=== PATIENT | male | born 1970 | race Caucasian/White ===

== ENCOUNTER 2024-05-03 15:27 | Emergency (ER) | payer SELFPAY ==
[~2024-05-03] VITALS: Ht 177.8 cm; Wt 73.1 kg
[~2024-05-03 15:27] MED LIST: CEPHALEXIN500 M1 PO; CIPRO 500MG TA500 MG PO; COLACE 100100 MG/CAP PO; HYDROCODONE/APAP; IBUPROFEN 200200 MG PO; MOTRIN 200200 MG/TAB PO; PERCOCET 325 MG1 TA2 PO; PERCOCET 5/321 UDTAB PO
[2024-05-03 15:38] VITALS: TEMP 98
[2024-05-03 16:02] LABS: COLLECTION METHOD CLEAN CATCH
[2024-05-03 16:08] LABS: PH 5.5 (5.0-8.5); URINE APPEARANCE CLEAR (CLEAR/HAZY); URINE BLOOD NEGATIVE (NEGATIVE); URINE COLOR YELLOW (YELLOW); URINE GLUCOSE NEGATIVE (NEGATIVE); URINE KETONE NEGATIVE (NEGATIVE); URINE NITRATE NEGATIVE (NEGATIVE); URINE PROTEIN(semi-quant) NEGATIVE (NEGATIVE); URINE UROBILINOGEN 0.2 E.U/dL (0.2-1.0)
[2024-05-03 16:15] VITALS: BP 171/118; PULSE 100
[2024-05-03 16:16] LABS: BASO # 0.1 K/mm3 (0.0-0.2); BASO % 0.6 % (0.0-2.0); EOS # 0.2 K/mm3 (0.0-0.7); EOS % 1.9 % (0.0-4.0); GRAN # 4.6 K/mm3 (1.4-6.5); GRAN % 59.3 % (42.2-75.2); HEMATOCRIT 44.3 % (42.0-52.0); HEMOGLOBIN 15.6 g/dl (13.5-18.0); LYMPH # 2.3 K/mm3 (1.2-3.4); LYMPH % 29.9 % (20.0-51.0); MEAN CELL VOLUME 94 fl (80.0-100.0); MEAN CORPUSCULAR HEMOGLOBIN 33 pg (27-31); MEAN CORPUSCULAR HGB CONC 35 g/dl (33.0-37.0); MEAN PLATELET VOLUME 9.3 fl (7.4-10.4); MONO # 0.6 K/mm3 (0.1-0.6); MONO % 7.3 % (1.7-9.3); PLATELET COUNT 213 K/mm3 (130-400); RED BLOOD COUNT 4.74 M/mm3 (4.20-5.60); REDCELL DISTRIBUTION WIDTH-CV 13.5 % (11.5-14.5)
[2024-05-03 16:26] LABS: TRICYCLIC ANTIDEPRESS URINE NEGATIVE (NEGATIVE)
[2024-05-03 16:38] LABS: ALANINE AMINOTRANSFERASE 126 U/L (0-55); ALBUMIN 4.4 g/dL (3.5-5.0); ALCOHOL(ethanol),MEDICAL 265 mg/dL (0-10); ALKALINE PHOSPHATASE 65 U/L (40-150); ANION GAP 16 mmol/L (7-16); AST,SGOT 130 U/L (5-34); BILIRUBIN,TOTAL 0.5 mg/dL (0.2-1.2); BLOOD UREA NITROGEN 12 mg/dL (8-26); CALCIUM 9.8 mg/dL (8.4-10.2); CHLORIDE 101 mEq/L (98-107); CREATININE, serum 0.76 mg/dL (0.72-1.25); GLUCOSE 64 mg/dL (70-99); POTASSIUM 4.4 mEq/L (3.5-4.5); SODIUM 133 mEq/L (136-145); TOTAL PROTEIN 7.9 g/dl (6.2-8.1)
[2024-05-03 16:53] LABS: SALICYLATE < 5.0 mg/dL (15.0-30.0)
[2024-05-03] MEDS ORDERED: Losartan 50 MG TAB PO SCH (17:56)
[2024-05-03] MEDS ORDERED: Nicotine 14 MG DAILY PATCH TD PRN (18:00)
[2024-05-03] MEDS ORDERED: LORazepam 0.5 MG TAB PO PRN (18:00)
== END 2024-05-03 18:36 | disposition left against medical advice (07) ==
LOC: COL.ER 15:27
PROVIDERS: Family Medicine
DX: F32.A Depression, unspecified (principal); F10.20 Alcohol dependence, uncomplicated; F17.210 Nicotine dependence, cigarettes, uncomplicated; Y90.8 Blood alcohol level of 240 mg/100 ml or more